=== PATIENT | female | born 1975 | race Two or more races ===

== ENCOUNTER 2017-01-28 21:26 | Inpatient (IN) | payer SELFPAY ==
[~2017-01-28] VITALS: Ht 167.6 cm; Wt 86.2 kg
[~2017-01-28 21:26] MED LIST: HYDR-971 PO; NAPR500T PO; PREN-6 PO
--- NOTE | 2017-01-28 21:58 | PHYS DOC ---
Past Medical History Past Medical History: No Pertinent History Past Surgical History: No Surgical History Alcohol Use: Occasionally Drug Use: None Adult General Chief Complaint Chief Complaint: FEVER HPI HPI Patient is a 41 year old female presenting to the emergency department for evaluation of fever chills nausea lower abdominal pain headache and not feeling well for the past 2 days. Some dysuria with her abdominal pain and that the headache is mild diffuse with no associated photophobia neck stiffness or confusion. Patient says that her fever has been as high as 103 and she took ibuprofen earlier today. She denies having any medical problems including diabetes or immune system issues. She is somewhat ill-appearing but nontoxic with a normal blood pressure. Review of Systems Review of Systems Constitutional: + fever, chills [] Eyes: Denies change in visual acuity, redness, or eye pain [] HENT: Denies nasal congestion or sore throat [] Respiratory: + cough. No shortness of breath [] Cardiovascular: No additional information not addressed in HPI [] GI: + abdominal pain, nausea. No vomiting, bloody stools or diarrhea [] : + dysuria. No hematuria [] Musculoskeletal: Denies back pain or joint pain [] Integument: Denies rash or skin lesions [] Neurologic: Denies headache, focal weakness or sensory changes [] Current Medications Current Medications Current Medications Medications (Trade) Dose Ordered Sig/Alva Start Time Stop Time Status Last Admin Dose Admin Acetaminophen (Tylenol) 1,000 mg 1X ONCE 01/28/17 22:30 01/28/17 22:31 DC 01/28/17 22:29 1,000 MG Ceftriaxone Sodium 2 gm/ Sodium Chloride 100 ml @ 200 mls/hr 1X ONCE 01/28/17 23:00 01/28/17 23:29 DC 01/28/17 22:48 200 MLS/HR Fentanyl Citrate (Fentanyl 2ml Vial) 50 mcg PRN Q2HR PRN 01/28/17 23:15 01/29/17 23:14 Ketorolac Tromethamine (Toradol) 15 mg 1X ONCE 01/28/17 22:30 01/28/17 22:31 DC 01/28/17 22:29 15 MG Ondansetron HCl (Zofran) 4 mg PRN Q8HRS PRN 01/28/17 23:15 01/29/17 23:14 Sodium Chloride 1,000 ml @ 1,000 mls/hr 1X ONCE 01/28/17 23:00 01/28/17 23:59 Allergies Allergies Allergies Coded Allergies Type Severity Reaction Last Updated Verified No Known Drug Allergies 03/11/14 No Physical Exam Physical Exam Constitutional: Well developed, well nourished, non-toxic appearance. [] HENT: Normocephalic, atraumatic, bilateral external ears normal, oropharynx moist, no oral exudates, nose normal. [] Eyes: PERRLA, EOMI, conjunctiva normal, no discharge. [] Neck: Normal range of motion, no tenderness, no neck stiffness or rigidity with negative Kernig's and Brudzinski's Cardiovascular:Heart rate tachycardic with regular rhythm, no murmur [] Lungs & Thorax: Bilateral breath sounds clear to auscultation [] Abdomen: Bowel sounds normal, soft, no tenderness, no masses, no pulsatile masses. [] Skin: Warm, dry, no erythema, no rash. [] Back: No tenderness, no CVA tenderness. [] Extremities: No tenderness, no cyanosis, no clubbing, ROM intact, no edema. [] Neurologic: Alert and oriented X 3, normal motor function, normal sensory function, no focal deficits noted. Current Patient Data Vital Signs Vital Signs Date Time Temp Pulse Resp B/P (MAP) Pulse Ox O2 Delivery O2 Flow Rate FiO2 01/28/17 22:37 106 21 114/74 (87) 99 Room Air 01/28/17 21:45 100.2 100.2 Lab Values Laboratory Tests Test 01/28/17 21:58 01/28/17 22:15 01/28/17 22:20 Urine Collection Type Unknown Urine Color Lesli Urine Clarity Turbid Urine pH 6.0 Urine Specific [place] 1.020 Urine Protein 100 mg/dL (NEG-TRACE) Urine Glucose (UA) 100 mg/dL (NEG) Urine Ketones (Stick) Negative mg/dL (NEG) Urine Blood Large (NEG) Urine Nitrite Negative (NEG) Urine Bilirubin Small (NEG) Urine Urobilinogen Dipstick 4.0 mg/dL (0.2 mg/dL) Urine Leukocyte Esterase Large (NEG) Urine RBC Occ /HPF (0-2) Urine WBC Tntc /HPF (0-4) Urine Squamous Epithelial Cells Occ /LPF Urine Bacteria Many /HPF (0-FEW) Urine Mucus Slight /LPF White Blood Count 16.5 x10^3/uL (4.0-11.0) H Red Blood Count 4.72 x10^6/uL (3.50-5.40) Hemoglobin 14.2 g/dL (12.0-15.5) Hematocrit 40.6 % (36.0-47.0) Mean Corpuscular Volume 86 fL (79-100) Mean Corpuscular Hemoglobin 30 pg (25-35) Mean Corpuscular Hemoglobin Concent 35 g/dL (31-37) Red Cell Distribution Width 13.4 % (11.5-14.5) Platelet Count 258 x10^3/uL (140-400) Neutrophils (%) (Auto) 92 % (31-73) H Lymphocytes (%) (Auto) 3 % (24-48) L Monocytes (%) (Auto) 4 % (0-9) Eosinophils (%) (Auto) 0 % (0-3) Basophils (%) (Auto) 0 % (0-3) Neutrophils # (Auto) 15.2 x10^3uL (1.8-7.7) H Lymphocytes # (Auto) 0.5 x10^3/uL (1.0-4.8) L Monocytes # (Auto) 0.7 x10^3/uL (0.0-1.1) Eosinophils # (Auto) 0.0 x10^3/uL (0.0-0.7) Basophils # (Auto) 0.1 x10^3/uL (0.0-0.2) Segmented Neutrophils % 82 % (35-66) H Band Neutrophils % 11 % (0-9) H Lymphocytes % 3 % (24-48) L Monocytes % 4 % (0-10) Platelet Estimate Adequate (ADEQUATE) Giant Platelets Occ Prothrombin Time 15.2 SEC (11.7-14.0) H Prothrombin Time INR 1.3 (0.8-1.1) H PTT 32 SEC (24-38) Sodium Level 129 mmol/L (136-145) L Potassium Level 3.4 mmol/L (3.5-5.1) L Chloride Level 94 mmol/L (98-107) L Carbon Dioxide Level 22 mmol/L (21-32) Anion Gap 13 (6-14) Blood Urea Nitrogen 17 mg/dL (7-20) Creatinine 1.2 mg/dL (0.6-1.0) H Estimated GFR (Cockcroft-Gault) 49.3 BUN/Creatinine Ratio 14 (6-20) Glucose Level 227 mg/dL (70-99) H Lactic Acid Level 2.3 mmol/L (0.4-2.0) H Calcium Level 8.7 mg/dL (8.5-10.1) Magnesium Level 1.9 mg/dL (1.8-2.4) Total Bilirubin 0.6 mg/dL (0.2-1.0) Aspartate Amino Transferase (AST) 24 U/L (15-37) Alanine Aminotransferase (ALT) 18 U/L (14-59) Alkaline Phosphatase 109 U/L (46-116) Total Protein 8.3 g/dL (6.4-8.2) H Albumin 3.3 g/dL (3.4-5.0) L Albumin/Globulin Ratio 0.7 (1.0-1.7) L POC Urine HCG, Qualitative Hcg negative (Negative) Laboratory Tests 01/28/17 22:15 Laboratory Tests 01/28/17 22:15 EKG EKG [] Radiology/Procedures Radiology/Procedures Chest x-ray shows normal mediastinum and normal heart size with no free air pneumothorax or opacity Course & Med Decision Making Course & Med Decision Making Patient does meet sepsis criteria so Rocephin started for likely source of urinary tract infection. Patient was also given multiple fluid bolus and fluid drip. After fluids and antibiotics patient's vital signs improved with heart rate going down to 100 and blood pressure at 110/60. Patient says that she is feeling much better as well. Septic with elevated lactic acid she'll be admitted to the hospital for further fluids antibiotics and trending of lactic acid. Patient admitted in guarded condition. Dragon Disclaimer Dragon Disclaimer This electronic medical record was generated, in whole or in part, using a voice recognition dictation system. Departure Departure Impression: Primary Impression: Sepsis Additional Impressions: UTI (urinary tract infection) Lactic acid acidosis Disposition: ADMITTED INPATIENT Admitting Physician: Other (REUSCH) Condition: GUARDED Referrals: NO PCP (PCP) Problem Qualifiers Primary Impression: Sepsis Sepsis type: sepsis due to unspecified organism Qualified Codes: A41.9 - Sepsis, unspecified organism PANCHO TANNER DO Jan 28, 2017 21:58
[2017-01-28 22:30] LABS: BILIRUBIN,URINE SMALL (NEG); GLUCOSE,URINE 100 mg/dL (NEG); NITRITE,URINE NEGATIVE (NEG); PROTEIN,URINE 100 mg/dL (NEG-TRACE)
[2017-01-28] MEDS ORDERED: ONDANSETRON PF 4 MG/2 ML VIAL. IV ONE (22:30)
[2017-01-28] MEDS ORDERED: KETOROLAC 15 MG/ML VIAL. IV ONE (22:30)
[2017-01-28] MEDS ORDERED: IV NORMAL SALINE 1000ML BAG 1,000 ML IV ONE ×3 (22:30→23:30)
[2017-01-28] MEDS ORDERED: ACETAMINOPHEN 500 MG TABLET PO ONE (22:30)
[2017-01-28 22:32] LABS: BASO # 0.1 x10^3/uL (0.0-0.2); BASO % 0 % (0-3); EOS % 0 % (0-3); HEMATOCRIT 40.6 % (36.0-47.0); HEMOGLOBIN 14.2 g/dL (12.0-15.5); LYMPH # 0.5 x10^3/uL (1.0-4.8); LYMPH % 3 % (24-48); MEAN CORPUSCULAR HEMOGLOBIN 30 pg (25-35); MEAN CORPUSCULAR HGB CONC 35 g/dL (31-37); MEAN CORPUSCULAR VOLUME 86 fL (79-100); MONO % 4 % (0-9); NEUT % 92 % (31-73); PLATELET COUNT 258 x10^3/uL (140-400); RED BLOOD COUNT 4.72 x10^6/uL (3.50-5.40); RED CELL DISTRIBUTION WIDTH 13.4 % (11.5-14.5); WHITE BLOOD COUNT 16.5 x10^3/uL (4.0-11.0)
[2017-01-28 22:35] LABS: BACTERIA,URINE MANY /HPF (0-FEW); RBC,URINE OCC /HPF (0-2); SQUAMOUS EPITHELIAL CELL,UR OCC /LPF; WBC,URINE TNTC /HPF (0-4)
[2017-01-28 22:37] LABS: INR 1.3 (0.8-1.1); PROTHROMBIN TIME PATIENT 15.2 SEC (11.7-14.0)
[2017-01-28 22:55] LABS: CALCIUM 8.7 mg/dL (8.5-10.1); CREATININE 1.2 mg/dL (0.6-1.0); GFR 49.3; POTASSIUM 3.4 mmol/L (3.5-5.1)
[2017-01-28 23:02] LABS: ALBUMIN 3.3 g/dL (3.4-5.0); ALBUMIN/GLOBULIN RATIO 0.7 (1.0-1.7); MAGNESIUM 1.9 mg/dL (1.8-2.4); TOTAL BILIRUBIN 0.6 mg/dL (0.2-1.0); TOTAL PROTEIN 8.3 g/dL (6.4-8.2)
[2017-01-28] MEDS ORDERED: fentaNYL PF VIAL 100 MCG/2 ML VIAL IV PRN (23:15)
[2017-01-28] MEDS ORDERED: ONDANSETRON PF 4 MG/2 ML VIAL. IV PRN (23:15)
[2017-01-28 23:17] LABS: PLT ESTIMATE ADEQUATE (ADEQUATE)
--- NOTE | 2017-01-29 02:18 | ACF ---
Admission Forms Criteria SEPSIS and Other Febrile Illness Without Focal Infection (Place 'X' for any and all applicable criteria): Admission to inpatient status for two midnights or more is indicated for ANY ONE of the following (1)(2)(3): [ ] I. Bacteremia [X]II. Suspected or identified specific infection requiring hospitalization (eg, meningitis, endocarditis) [ ]III. Hemodynamic instability [ ]IV. Temperature > 104.9 0F (40.5 0C) (oral) [ ]V. Core (rectal) temperature < 95 0F (35 0C) (eg, thought to be due to infection) [ ]. Altered mental status that is severe or persistent [ ]VII. Failure or unavailability of outpatient antimicrobial treatment [ ]VIII. Hypoxemia [ ]IX. Seizures [ ]X. New coagulopathy (eg, reduced platelet count consistent with disseminated intravascular coagulation) [ ]XI. Inpatient admission required [B] rather than observation care because of 1 or more of the following 1) Tachypnea not responsive to outpatient or observation treatment 2) Metabolic disorder (eg, hypoglycemia, hyperglycemia, metabolic acidosis ) that persists despite outpatient and observation care treatment 3) Evidence of end-organ dysfunction (eg, rising creatinine, myocardial ischemia, rising liver function tests) that is severe or persists despite observation care treatment 4) Temperature > 103.1 0F (39.5 0C) (oral) that is not responsive to observation care treatment 5) Dehydration that is severe or persistent 6) Parenteral antimicrobial regimen that must be implemented on inpatient basis (eg, infusion or monitoring needs beyond capabilities of outpatient parenteral therapy) 7) Strict or protective (eg, laminar flow) isolation 8) Other condition, treatment or monitoring requiring inpatient admission Extended stay beyond goal length of stay may be needed for(1)(3) [ ]a) Persistent Hypotension [ ]b) Positive blood cultures [ ]c) Lack of improvement on antimicrobial treatment (eg, continued fever) [ ]d) Active comorbid illness (eg, heart failure, renal failure) [ ]e) High-risk febrile neutropenia [ ]f) Insufficient oral intake [ ]g) insufficient oral intake The original [facility] [employer] content created by [employer] has been revised. The portions of the content which have been revised are identified through the use of italic text, and [facility] [employer] has neither reviewed nor approved the modified material. All other unmodified content is copyright [facility]. Please see references footnoted in the original [facility] edition 2015 Admission Criteria Met?: Yes ANT ADAME Jan 29, 2017 02:18
[2017-01-29 03:00] VITALS: BP 116/81
[2017-01-29 04:54] LABS: BASO % 0 % (0-3); EOS % 0 % (0-3); HEMATOCRIT 36.1 % (36.0-47.0); HEMOGLOBIN 12.1 g/dL (12.0-15.5); LYMPH % 7 % (24-48); MEAN CORPUSCULAR HEMOGLOBIN 29 pg (25-35); MEAN CORPUSCULAR HGB CONC 33 g/dL (31-37); MEAN CORPUSCULAR VOLUME 88 fL (79-100); MONO % 4 % (0-9); NEUT % 89 % (31-73); PLATELET COUNT 212 x10^3/uL (140-400); RED CELL DISTRIBUTION WIDTH 13.4 % (11.5-14.5); WHITE BLOOD COUNT 13.9 x10^3/uL (4.0-11.0)
[2017-01-29 05:06] LABS: CALCIUM 7.8 mg/dL (8.5-10.1); CREATININE 0.9 mg/dL (0.6-1.0); GFR 68.7; POTASSIUM 3.2 mmol/L (3.5-5.1)
[2017-01-29 07:00] VITALS: BP 99/65
--- NOTE | 2017-01-29 07:33 | RAD ---
Indication fever. Cough. Shortness of breath. A single view of the chest was obtained. No prior imaging of the chest is available. The heart, pulmonary vessels and mediastinum appear normal. The lungs are clear. IMPRESSION: Normal single view of the chest
[2017-01-29 11:04] VITALS: BP 111/68
[2017-01-29 14:50] VITALS: BP 115/64
[2017-01-29] MEDS: ACETAMINOPHEN 325 MG TABLET. PO PRN ×2 (15:57→23:37)
--- NOTE | 2017-01-29 16:35 | HP ---
ADMIT DATE: 01/29/2017 CHIEF COMPLAINT: Fevers. HISTORY OF PRESENT ILLNESS: The patient is a 41-year-old who presented to the Emergency Room with high fevers that had started on day of presentation. She reports having sweats that actually soaked through her clothes. She denies any respiratory symptoms, although does have a mild cough with minimal sputum production. Denies any other URI symptoms. On further questioning, she denies nausea, vomiting, diarrhea. Does have, however, a several day history of dysuria and frequency. In the Emergency Room, she was found with UTI, given ceftriaxone and admitted for sepsis due to UTI. PAST MEDICAL HISTORY: None. FAMILY HISTORY: No significant diseases known to her. SOCIAL HISTORY: Lives with her children. No toxic habits. Denies any significant alcohol or drugs. ALLERGIES: No known drug allergies. HOME MEDICATIONS: Tylenol p.r.n. REVIEW OF SYSTEMS: Positive as per HPI. She denies any symptoms in rest of organ system review. PHYSICAL EXAMINATION: VITAL SIGNS: From today show a blood pressure of 111/68, heart rate of 94, respiratory rate at 18. She is afebrile. GENERAL: This is a 41-year-old woman, overweight, alert and oriented, in no acute distress. HEENT: Shows no scleral icterus. Oral mucosa is pink and moist. NECK: Supple. LUNGS: Clear to auscultation bilaterally. HEART: Regular rate and rhythm. ABDOMEN: Has positive bowel sounds, soft, nontender. EXTREMITIES: Show no edema. SKIN: Warm, soft and dry without any rash. LABORATORY DATA: CBC with a WBC of 16.5, hemoglobin 14.2 and platelets of 258 at admission, differential with 82% segs, 11 bands. WBC somewhat improved this morning at 13.9. Chemistries with a BUN and creatinine of 14 and 0.9, potassium at 3.2, calcium 7.8, albumin 3.3. Urinalysis shows TNTC wbc and many bacteria. IMAGING: Chest x-ray obtained in the Emergency Room shows normal view of the chest. ASSESSMENT AND PLAN: The patient is a 41-year-old presenting with high fevers, tachycardia and leukocytosis consistent with mild sepsis. This appears to be secondary to a urinary tract infection. She is admitted. She received her first dose of ceftriaxone at 11:00 last night. We will repeat tonight. Cultures are pending as well as sensitivities. Hopefully, results will be available by tomorrow. She actually has not had a true fever here in the hospital, although temperature has been slightly elevated. We will monitor closely. Tylenol p.r.n. for fevers greater than 100.4. IV fluids have been given. She is now able to eat and drink without any difficulties. We will encourage p.o. GIOVANNI LEMUS MD DR: JAIME/rufino JOB#: [id number] / [id number] DANIELLA
[2017-01-29 19:00] VITALS: BP 104/65
[2017-01-29 22:48] VITALS: BP 111/68
[2017-01-30 03:00] VITALS: BP 107/70
[2017-01-30] MEDS: ACETAMINOPHEN 325 MG TABLET. PO PRN ×2 (04:49→19:57)
[2017-01-30 11:00] VITALS: BP 110/68
[2017-01-30 14:37] VITALS: BP 108/66
--- NOTE | 2017-01-30 15:07 | PDOC ---
PROGRESS NOTES Chief Complaint Chief Complaint Urosepsis ASSESSMENT AND PLAN: 1. Sepsis: fever at 3AM, otherwise, sx resolved 2. UTI: GNR >100K CFU, id and sens pending. 3rd ceftriax tonight 3. LOow K: replete orally 4. Dispo: if she remains afeb, plan for d/c in AM History of Present Illness History of Present Illness feels well this PM. eager to gome Vitals Vitals Vital Signs Date Time Temp Pulse Resp B/P (MAP) Pulse Ox O2 Delivery O2 Flow Rate FiO2 01/30/17 14:37 98.9 77 18 108/66 (80) 99 Room Air 98.9 Physical Exam General: Alert, Oriented X3, Cooperative, No acute distress Heart: Regular rate Lungs: Clear Abdomen: Normal bowel sounds, Soft, No tenderness Extremities: No edema Skin: No rashes GIOVANNI LEMUS MD Jan 30, 2017 15:07
[2017-01-30] MEDS ORDERED: POTASSIUM CHLORIDE 20 MEQ TABLET.ER. PO ONE (16:45)
[2017-01-30 19:33] VITALS: BP 114/71
[2017-01-30 21:46] LABS: ALBUMIN 2.6 g/dL (3.4-5.0); ALBUMIN/GLOBULIN RATIO 0.6 (1.0-1.7); CALCIUM 8.7 mg/dL (8.5-10.1); CREATININE 0.8 mg/dL (0.6-1.0); GFR 78.7; POTASSIUM 3.4 mmol/L (3.5-5.1); TOTAL BILIRUBIN 0.3 mg/dL (0.2-1.0); TOTAL PROTEIN 7.3 g/dL (6.4-8.2)
[2017-01-30 22:52] VITALS: BP 93/65
[2017-01-31 03:00] VITALS: BP 119/79
[2017-01-31 05:20] LABS: BASO # 0.1 x10^3/uL (0.0-0.2); BASO % 1 % (0-3); EOS % 0 % (0-3); HEMATOCRIT 36.5 % (36.0-47.0); HEMOGLOBIN 12.7 g/dL (12.0-15.5); LYMPH # 1.7 x10^3/uL (1.0-4.8); LYMPH % 16 % (24-48); MEAN CORPUSCULAR HEMOGLOBIN 30 pg (25-35); MEAN CORPUSCULAR HGB CONC 35 g/dL (31-37); MEAN CORPUSCULAR VOLUME 87 fL (79-100); MONO % 9 % (0-9); NEUT % 74 % (31-73); PLATELET COUNT 240 x10^3/uL (140-400); RED BLOOD COUNT 4.19 x10^6/uL (3.50-5.40); RED CELL DISTRIBUTION WIDTH 13.9 % (11.5-14.5); WHITE BLOOD COUNT 10.5 x10^3/uL (4.0-11.0)
[2017-01-31 07:00] VITALS: BP 108/50
[2017-01-31] MEDS: ACETAMINOPHEN 325 MG TABLET. PO PRN (08:28)
[2017-01-31 11:06] VITALS: BP 110/52
--- NOTE | 2017-02-01 22:06 | DS ---
DATE OF DISCHARGE: 01/31/2017 CHIEF COMPLAINT: Urosepsis. HOSPITAL COURSE: The patient is a 41-year-old woman who presented to the Emergency Room with septic symptoms including fevers, general malaise, myalgias and hypertension. She was found to have urinary tract infection and was promptly admitted. Sepsis symptoms unfortunately persisted with fevers for another 36 hours. UTI was thought to be gram-negative rods greater than 100,000 CFU and she received three daily doses of ceftriaxone. As she remained afebrile for 24 hours, she was deemed appropriate for discharge on the . DISCHARGE PHYSICAL EXAMINATION: VITAL SIGNS: Showed a blood pressure of 110/52, heart rate of 98, respiratory rate at 88, temperature 99. GENERAL: This is a 41-year-old woman, alert and oriented, no acute distress. LUNGS: Clear. HEART: Regular rate and rhythm. ABDOMEN: Has positive bowel sounds, soft, nontender. EXTREMITIES: Show no edema. DISCHARGE DIAGNOSES: Sepsis, urinary tract infection. DISCHARGE DISPOSITION: To home. DISCHARGE CONDITION: Improved. DISCHARGE MEDICATIONS: Please refer to MAR. DISCHARGE INSTRUCTIONS: The patient will follow up with PCP in one week and repeat urinalysis. GIOVANNI LEMUS MD DR: JAIME/nts JOB#: [id number] / [id number] DANIELLA
== END 2017-01-31 16:07 | disposition home or self-care (01) | DRG 872 ==
LOC: ER 21:26 → 5 SOUTH 23:15
PROVIDERS: ADMIT Internal Medicine Hematology & Oncology; ATTEND Internal Medicine Hematology & Oncology
DX: A41.9 Sepsis, unspecified organism (principal); I10 Essential (primary) hypertension; N39.0 Urinary tract infection, site not specified
CPT/HCPCS: 36415; 71010; 80048; 80053; 81001; 81025; 83605; 83735; 85007; 85025; 85610; 85730; 87040; 87086; 96361; 96365; 96375; J0696; J1885; J2405; J7030; 99285-25